=== PATIENT | female | born 1990 | race African-American/Black ===

== ENCOUNTER 2018-07-26 22:48 | Emergency (ER) | payer OTHER ==
[~2018-07-26] VITALS: Ht 157.5 cm; Wt 72.6 kg
[2018-07-26 23:00] VITALS: Ht 157.5 cm; Wt 72.6 kg
[2018-07-27 00:39] VITALS: BP 121/79
== END 2018-07-27 00:39 | disposition home or self-care (01) ==
LOC: ED 22:48
DX: S20.212A Contusion of left front wall of thorax, initial encounter (principal); S20.211A Contusion of right front wall of thorax, initial encounter; R56.9 Unspecified convulsions; F32.9 Major depressive disorder, single episode, unspecified; Y04.0XXA Assault by unarmed brawl or fight, initial encounter; Y93.89 Activity, other specified; Y92.89 Other specified places as the place of occurrence of the external cause; Y99.8 Other external cause status